=== PATIENT | male | born 1970 | race Native Hawaiian/Other Pacific Islander ===

== ENCOUNTER 2021-05-14 10:06 | Outpatient (REF) | payer OTHER, SELFPAY ==
--- NOTE | ~2021-05-14 | US_ITS ---
EXAMINATION: US RETROPERITONEAL COMPLETE (RENAL) CLINICAL INFORMATION: Flank pain. Rule out hydronephrosis. COMPARISON: None TECHNIQUE: Real-time imaging of the kidneys and bladder. FINDINGS: RIGHT KIDNEY: 10.7 x 5.0 x 4.9 cm (SAG x AP x TRV). The kidney is normal in size, contour, and echogenicity. Renal cortical thickness is normal. No calculi or focal parenchymal lesions. No hydronephrosis. LEFT KIDNEY: 11.0 x 5.1 x 5.0 cm (SAG x AP x TRV). The kidney is normal in size, contour, and echogenicity. Renal cortical thickness is normal. No calculi or focal parenchymal lesions. No hydronephrosis. BLADDER: Well distended and normal. Bilateral ureteral jets are demonstrated. Prevoid bladder volume is 181.9 mL. Postvoid bladder volume is 155.2 mL. Prostate volume 24.9 mL. US/US retroperitoneal comp IMPRESSION: 1. There are bilateral nonobstructed kidneys. 2. There is moderate prostate volume. There is a large post void residual.
== END 2021-05-14 10:07 | disposition home or self-care (01) ==
LOC: HO.US 10:06
PROVIDERS: PCP Internal Medicine Geriatric Medicine; Visit Provider Internal Medicine
DX: R10.9 Unspecified abdominal pain (principal)
CPT/HCPCS: 76770

== ENCOUNTER 2021-06-18 08:19 | Emergency (ER) | payer OTHER, SELFPAY ==
[2021-06-18 09:01] VITALS: BP 115/65; PULSE 67; RESP 18; TEMP 36.1; O2SAT 99; BMI 30.4
--- NOTE | 2021-06-18 09:17 | ED_ITS ---
HPI - Eye Problem General Chief complaint: Eye Problems Stated complaint: eye issue Time Seen by Provider: 06/18/21 09:16 Source: patient Mode of arrival: ambulatory Limitations: language barrier History of Present Illness HPI Narrative: 51-year-old Belarusian-speaking male presents for concerns for right eye. States he was moving trash at work yesterday and something fell into his right eye. He had some mild right eye pain yesterday and a sensation of foreign body in his right eye yesterday, no pain today. No itching today. No visual changes, blurry vision, or double vision. No neck pain, vomiting, or headache. Patient does not were contacts or glasses. Today, no pain in right eye, but right eye is red. Related Data Previous Rx's Medication Instructions Recorded erythromycin 5 mg/gram (0.5 %) eye 0.5 inch OPHTHALMIC (EYE) Q6H 5 06/18/21 ointment Days #3.5 g Allergies Allergy/AdvReac Type Severity Reaction Status Date / Time No Known Allergies Allergy Unverified 11/24/19 17:13 Review of Systems Constitutional: Constitutional: Denies body ache(s), Denies chills, Denies fatigue, Denies fever(s), Denies headache(s), Denies malaise and Denies weakness Eyes: Eyes: Denies blind spots, Denies blurry vision, Denies change in vision, Denies diplopia, Denies floaters, Reports irritation, Denies itchy eyes, Denies loss of vision, Denies eye pain, Denies seeing flashes and Denies photophobia Comments: Redness right eye ENT: Denies vertigo, Denies dizziness, Denies otalgia, Denies headache(s), Denies mouth pain, Denies post nasal drip, Denies sinus pain, Denies sinus pressure, Denies sore throat and Denies throat swelling Cardiovascular: Cardiovascular: Denies chest pain, Denies syncope, Denies leg edema, Denies lightheadedness, Denies Loss of Consciousness, Denies palpitations and Denies dyspnea Respiratory: Respiratory: Denies chest congestion, Denies cough and Denies dyspnea Gastrointestinal: Gastrointestinal: Denies abdominal pain, Denies hematochezia, Denies constipation, Denies diarrhea and Denies vomiting Musculoskeletal: Musculoskeletal: Reports no additional musculoskeletal complaints Neurologic: Denies confusion, Denies vertigo, Denies dizziness, Denies syncope, Denies headache(s), Denies loss of vision and Denies weakness Psychiatric: Psychiatric: Denies anxiety, Denies confusion and Denies depression Endocrine: Endocrine: Denies fatigue and Denies palpitations Allergic/Immunologic: Allergic/Immunologic: Denies itchy eyes and Denies throat swelling PMFSH Past Medical History Medical History (Updated 06/18/21 @ 10:21 by JOSEPH Santiago) No known health problems Social History Social History Advance Directives: No Advance Directives Information Provided: Yes Physical Exam Vital Signs: Vital Signs: Last Vital Signs Temp 96.9 F 06/18/21 09:01 Pulse 67 06/18/21 09:01 Resp 18 06/18/21 09:01 BP 115/65 06/18/21 09:01 Pulse Ox 99 06/18/21 09:01 BMI result Body Mass Index 30.4 Const: General: No confusion Nutritional Appearance: well nourished Orientation/consciousness: No confusion Limitations: no limitations HEENT: Head: Yes normal to inspection, Yes normocephalic and Yes atraumatic Ears: hearing grossly normal bilaterally, external ears normal, TM's normal bilaterally and EAC's normal General nose exam: Normal external nose present Face and sinus: Yes normal facial exam and Yes sinuses nontender Mouth: Normal oral and palatal mucosa present Throat: Yes posterior oropharynx normal Eyes: Other: left eye 20/15, right eye 20/25, bilateral 20/25 Visual Vega: normal visual vega by confrontation Alignment and Position: alignment normal Periorbital: periorbital findings normal Eyelids: Yes eyelids normal Conjunctivae: conjunctival abnormal right conjunctival chemosis and subconjunctival hemorrhage Sclerae: sclerae normal Corneas: corneas normal and fluorescein used Pupils: Equal, round and reactive pupils present EOM: EOMs intact bilaterally Direct Ophthalmoscopy: normal light reflex, no photophobia and No photophobia Neck: Neck: Yes full ROM, Yes no lymphadenopathy and Yes supple Resp: Effort & Inspection: normal respiratory effort and able to speak in complete sentences Auscultation: clear to auscultation bilaterally, no crackles, no rales, no rhonchi and no wheezes Cardio: Rate: regular rate Rhythm: regular rhythm Heart sounds: S1 normal heart sound present and S2 normal heart sound present GI: Inspection: Yes normal to inspection Palpation (GI): Soft to palpation, nontender, no guarding and not rigid Percussion: Yes normal to percussion Auscultation: normal bowel sounds Skin: General skin exam: no rashes or lesions noted Neuro: General: No confusion Cranial nerves: Yes Equal, round and reactive pupils present Extrem: General: Yes normal to inspection and Yes full ROM Psych: Appearance: grossly normal Affect: normal affect Attitude: cooperative Thought process: Normal thought process present Course Course Course Narrative: 51-year-old male with red right eye. On exam, patient has conjunctival chemosis in his right medial eye with subconjunctival hemorrhage that is mild Fluorescein stain reveals no corneal abrasion. Patient's visual acuity is within normal limits, patient has no pain with EOMs, patient is PERRLA. Will treat with erythromycinn ointment, follow-up with underwriting director Discharge Plan Discharge Clinical Impression: Chemosis of conjunctiva Patient Disposition: Home, Self-Care Additional Instructions: Please call eye doctor at [phone] today. I would like you to have a appointment with him in the next 2 days. In addition, please fill the prescription for urethra mycin ointment I prescribed, and put it in your right eye 4 times a day for 5 days. If you have visual loss, visual changes, neck pain, headache, please return to the emergency room. Kapil lyman al oftalm?logo al [phone]. Me gustar?a que tuviera mallory chad con ?l en los pr?ximos 2 d?as. Adem?s, complete la receta de pomada de uretramicina que le recet? y col?quela en moser osvaldo derecho 4 veces al d?a christy 5 d?as. Si tiene p?rdida visual, cambios visuales, dolor de johanne, dolor de ghassan, regrese a la hamilton de emergencias. Prescriptions: New erythromycin 5 mg/gram (0.5 %) ointment 0.5 inch ophthalmic (eye) Q6H 5 Days Qty: 3.5 0RF Referrals: Manish Levy [Physician] - Interventions: ED Discharge Assessment Last Done: 06/18/21 10:26 Discharge Date/Time: 06/18/21 10:26
[2021-06-18] MEDS: Tetracaine HCl/PF 0.5% Oph Sol 4 ML DROPS 3 DROP EYE-RIGHT (09:25)
[2021-06-18] MEDS: Fluorescein Sodium STRIP 1 STRIP EYE-RIGHT (09:25)
== END 2021-06-18 10:26 | disposition home or self-care (01) ==
PROVIDERS: Emergency Provider Emergency Medicine; PCP Internal Medicine Geriatric Medicine
DX: H11.421 Conjunctival edema, right eye (principal); H57.11 Ocular pain, right eye
CPT/HCPCS: 99283

== ENCOUNTER 2023-06-09 14:33 | Emergency (ER) | payer MEDICAID, SELFPAY ==
--- NOTE | ~2023-06-09 | XR_ITS ---
EXAMINATION: XR CHEST CLINICAL INFORMATION: Cough. COMPARISON: Chest x-ray 07/22/2018 TECHNIQUE: 2 views of the chest were obtained. FINDINGS: The lungs are well-expanded with patchy small consolidation right middle lobe suggestive of infiltrate. Rest lungs are clear. Heart size and pulmonary vascularity is normal. No gross bony abnormality seen. XR/XR chest 2V IMPRESSION: Right middle lobe small consolidation.
[2023-06-09 14:57] VITALS: BP 125/72; PULSE 82; RESP 16; TEMP 37.2; O2SAT 100; BMI 27.3
--- NOTE | 2023-06-09 14:58 | ED_ITS ---
HPI - General Adult General Chief complaint: Upper Respiratory Symptoms Stated complaint: Fever Body Aches Diff Breathing Time Seen by Provider: 06/09/23 16:07 Source: patient, family and old records reviewed Mode of arrival: ambulatory Limitations: no limitations History of Present Illness HPI narrative: This is a 53-year-old male, with a history of asthma, presenting to the emergency department, accompanied by his daughter, complaints of chills, productive cough x8 days. Patient endorsing chest pain only which occurs with cough. He states that his son-in-law sick with similar symptoms. He endorses subjective fevers, chills, green-colored sputum with cough. Denies any abdominal pain, nausea, vomiting, or diarrhea. He denies any shortness of breath or wheezing. He has been taking Robitussin as well as using his inhaler at home which has provided him with some relief. No other complaints or concerns at this time. MD complaint: Cough Onset (ago): day(s) Relieving factors: none Exacerbating factors: none Associated symptoms: cough and fever/chills Treatments prior to arrival: none Related Data Previous Rx's Medication Instructions Recorded erythromycin 5 mg/gram (0.5 %) eye 0.5 inch ophthalmic (eye) Q6H 5 06/18/21 ointment days #3.5 grams acetaminophen 500 mg tablet 500 - 1,000 mg (1 - 2 x 500 mg) PO 06/09/23 (Tylenol Extra Strength) Q6H PRN fever or pain #30 tabs albuterol sulfate 2.5 mg/0.5 mL 2.5 mg (0.5 mL) inhalation Q20M 06/09/23 solution for nebulization #30 ea albuterol sulfate 90 mcg/actuation 2 inh inhalation Q6H PRN shortness 06/09/23 aerosol inhaler of breath or wheezing #6.7 grams azithromycin 250 mg tablet 250 mg PO DAILY 4 days #4 tabs 06/09/23 ibuprofen 600 mg tablet 600 mg PO Q6H PRN fever or pain 06/09/23 #30 tabs Allergies Allergy/AdvReac Type Severity Reaction Status Date / Time No Known Allergies Allergy Verified 06/09/23 14:57 Review of Systems Review of Systems: Yes all other systems are reviewed and are negative Constitutional: Constitutional: Reports as per [facility] Past Medical History Medical History (Updated 06/09/23 @ 17:30 by JOSEPH Coles) No known health problems Social History Social History Advance Directives: No Advance Directives Information Provided: No Physical Exam ED Vital Signs: Vital Signs - 24 hr 06/09/23 14:57 Temperature 98.9 F Pulse Rate 82 Respiratory Rate 16 Blood Pressure 125/72 Pulse Oximetry 100 Oxygen Delivery Method Room Air BMI result Body Mass Index 27.3 Const General: cooperative, comfortable and no acute distress Orientation/consciousness: patient oriented x3 Limitations: no limitations HENMT Head: Yes normal to inspection, Yes normocephalic and Yes atraumatic Ears: hearing grossly normal bilaterally General nose exam: Normal external nose present Face and sinus: Yes normal facial exam Mouth: Normal oral and palatal mucosa present, oropharynx normal and moist mucous membranes Throat: Yes posterior oropharynx normal Eyes General: appearance normal, both eyes and all related structures Eyelids: Yes eyelids normal Conjunctivae: conjunctivae normal Sclerae: sclerae normal Pupils: Equal, round and reactive pupils present EOM: EOMs intact bilaterally Neck Neck: Yes normal visual inspection, Yes full ROM and Yes no lymphadenopathy Lymphatic: no lymphadenopathy noted Chest Chest palpation & inspection: normal inspection of the chest Resp Effort & Inspection: normal respiratory effort and able to speak in complete sentences Auscultation: clear to auscultation bilaterally, no crackles, no rales, no rhonchi and no wheezes Cardio Rate: regular rate Rhythm: regular rhythm Heart sounds: S1 normal heart sound present and S2 normal heart sound present GI Inspection: Yes normal to inspection Skin General skin exam: no rashes or lesions noted Trauma: no lacerations or abrasions Wounds: no wounds Neuro General: patient oriented x3 and moves all extremities Cranial nerves: Yes Equal, round and reactive pupils present Extrem General: Yes normal to inspection Right upper extremity: normal to inspection Left upper extremity: normal to inspection Right lower extremity: normal to inspection Left lower extremity: normal to inspection Course Course Course Narrative: This is a Rapid Medical Examination (RME) in triage, full HPI, ROS, assessment and plan per primary provider in the Main ED. 53 yo Azeri speaking male with history of asthma presents to the ER for evaluation of productive cough for the last 8 days, green phlegm. Fevers and body aches, chest pain w/ coughing. No known sick contacts. SpO2 100% in triage, speaking in complete sentences. Plan: viral swab, CXR Medical Decision Making Medical Decision Making [facility] Narrative: This is a 53-year-old male, with a history of asthma, presenting to the emergency department with complaints of subjective fevers, chills, productive cough with green-colored sputum for the last 8 days. Patient endorsing chest pain which occurs with coughing. Son-in-law sick with similar symptoms. On arrival, vital signs within normal limits, he has in no acute respiratory distress. Lungs are clear to auscultation bilaterally. Viral swabs as well as chest x-ray was obtained, chest x-ray concerning for right middle lobe pneumonia. Given that he has not hypoxic, afebrile, will treat with a course of antibiotics outpatient. Patient given strict return precautions. He understands and agrees with plan. Differential Diagnosis Differential Diagnoses: The differential diagnosis associated with the presentation includes URI, bronchitis, pneumonia, pneumothorax-unlikely, COVID Admission/Observation Consideration of admission/observation: Escalation of care including admission/observation considered Lab Data [facility] Lab Attestation statement: I reviewed the patient's lab results. Negative viral swabs Labs: Lab Results 06/09/23 Range/Units 15:04 Influenza Type A (PCR) NEGATIVE (Negative) Influenza Type B (PCR) NEGATIVE (Negative) RSV RNA Qual (PCR) NEGATIVE (Negative) SARS-CoV-2 RNA (RT-PCR) NEGATIVE (Negative) Independent Interpretation I performed an independent interpretation of an: Plain X-Ray Interpretation: I reviewed the chest x-ray and agree with the radiology report Radiology Impression Discussion of test interpretation with radiology: I have reviewed the radiologist's reading. Radiologist Impression: EXAMINATION: XR CHEST CLINICAL INFORMATION: Cough. COMPARISON: Chest x-ray 07/22/2018 TECHNIQUE: 2 views of the chest were obtained. FINDINGS: The lungs are well-expanded with patchy small consolidation right middle lobe suggestive of infiltrate. Rest lungs are clear. Heart size and pulmonary vascularity is normal. No gross bony abnormality seen. XR/XR chest 2V IMPRESSION: Right middle lobe small consolidation. Dictated By: Lars Smith MD Independent Historian Clinical information obtained from an independent historian. History obtained from or confirmed by: Other (Daughter) Discharge Plan Discharge Clinical Impression: Pneumonia Qualifiers: Pneumonia type: due to unspecified organism Laterality: right Lung location: middle lobe of lung Qualified Code(s): J18.9 - Pneumonia, unspecified organism Patient Disposition: Home, Self-Care Instructions: Pneumonia (ED) Additional Instructions: Your chest x-ray is concerning for pneumonia. This requires antibiotics. Please finish the entire course even if your feeling better. Drink plenty of fluids get plenty of rest. Alternate between ibuprofen and Tylenol as needed for pain and symptoms. If any new or worsening symptoms occur including but not limited to worsening chest pain, shortness of breath, abdominal pain, nausea, vomiting or diarrhea, please return for re-evaluation. Prescriptions: New ibuprofen 600 mg tablet 600 mg PO Q6H PRN (Reason: fever or pain) Qty: 30 0RF acetaminophen [Tylenol Extra Strength] 500 mg tablet 500 - 1,000 mg PO Q6H PRN (Reason: fever or pain) Qty: 30 0RF Rx Instructions: Do not exceed more than 6 tablets in a 24 hour period azithromycin 250 mg tablet 250 mg PO DAILY 4 Days Qty: 4 0RF Rx Instructions: start on day 2 of therapy albuterol sulfate 90 mcg/actuation HFA aerosol inhaler 2 inh inhalation Q6H PRN (Reason: shortness of breath or wheezing) Qty: 6.7 0RF albuterol sulfate 2.5 mg/0.5 mL solution for nebulization 2.5 mg inhalation Q20M Qty: 30 0RF Rx Instructions: for up to 3 doses No Action erythromycin 5 mg/gram (0.5 %) ointment 0.5 inch ophthalmic (eye) Q6H 5 Days Qty: 3.5 0RF
[2023-06-09 16:04] LABS: Influenza A PCR NEGATIVE (Negative); Influenza B PCR NEGATIVE (Negative); Resp Syncy Virus RNA Qual PCR NEGATIVE (Negative); SARS COV2 PCR INHOUSE NEGATIVE (Negative)
[2023-06-09] MEDS: Acetaminophen 325 MG TABLET 975 MG PO (17:45)
[2023-06-09] MEDS: Azithromycin 500 MG TABLET PO (17:45)
[2023-06-09 17:49] VITALS: BP 107/65; PULSE 100; RESP 18; TEMP 39.1; O2SAT 94
[2023-06-09 18:50] VITALS: BP 101/62; PULSE 86; RESP 16; TEMP 37.4; O2SAT 94
== END 2023-06-09 18:50 | disposition home or self-care (01) ==
PROVIDERS: Physician Assistant; Emergency Provider Emergency Medicine; PCP Internal Medicine Geriatric Medicine
DX: J18.9 Pneumonia, unspecified organism (principal); J45.909 Unspecified asthma, uncomplicated
CPT/HCPCS: 0241U; 71046; 99283

== ENCOUNTER 2023-06-12 10:06 | Outpatient (REF) | payer MEDICAID, SELFPAY ==
--- NOTE | ~2023-06-12 | XR_ITS ---
EXAMINATION: XR chest 2V CLINICAL INFORMATION: Reason for Exam s/p pna - needs xray 1 months after tx (around 07/13) COMPARISON: No prior chest x-ray available in our system for comparison at the time of this dictation. TECHNIQUE: XR chest 2V, 2 Views Lungs and Rosy: Both lungs are clear. Pleura: Normal. Costophrenic angles are sharp. No pneumothorax. Heart: The heart is normal in size. Mediastinum: The mediastinum is within normal limits.. Bones: Skeletal structures included are normal for patient's age. XR/XR chest 2V IMPRESSION: No radiographic evidence of acute cardiopulmonary disease.
== END 2023-06-12 10:07 | disposition home or self-care (01) ==
LOC: HO.HHCX 10:06
PROVIDERS: Visit Provider Nurse Practitioner Family
DX: R91.8 Other nonspecific abnormal finding of lung field (principal)
CPT/HCPCS: 71046

== ENCOUNTER 2023-12-17 09:32 | Outpatient (REF) | payer MEDICAID, SELFPAY ==
[2023-12-17 11:13] LABS: MANUAL DIFF FLAG NO
[2023-12-17 11:40] LABS: Basophils Percent Auto 0.6 % (0-2); Eosinophils Absolute Auto 0.3 X10*3/uL (0.0-0.4); Eosinophils Percent Auto 6.3 % (0-4); Hematocrit 44.7 % (42.0-52.0); Imm Gran Abs Auto 0.01 X10*3/uL (0.00-0.03); Imm Gran Pct Auto 0.2 % (0.0-0.4); Lymphocytes Absolute Auto 2.5 X10*3/uL (1.2-4.9); Mean Corpuscular HGB Conc 33.6 g/dl (31.0-36.0); Mean Corpuscular Hemoglobin 27.9 pg (27.0-33.0); Mean Corpuscular Volume 83.2 fL (80.0-98.0); Mean Platelet Volume 10.3 fL (9.4-12.4); Monocytes Absolute Auto 0.3 X10*3/uL (0.1-1.2); Monocytes Percent Auto 6.5 % (2-11); Neutrophils Absolute Auto 1.8 x10*3/uL (2.0-8.3); Neutrophils Percent Auto 36.4 % (45-73); Platelet Count 163 X10*3/uL (160-400); Red Blood Count 5.37 X10*6/uL (4.60-5.80); Red Cell Distribution Width 13.2 % (11.0-16.0); White Blood Count 5.1 X10*3/uL (4.8-10.8)
[2023-12-17 12:01] LABS: Estimated Average Glucose 111 mg/dL; Hemoglobin A1C 133.3113 umol/L; Hemoglobin A1c % 5.5 % (<6.0); Total Hemoglobin (HGBA1C) 3648.5765 umol/L
[2023-12-17 12:15] LABS: Alanine Aminotransferase 29 U/L (0-40); Albumin Level 4.1 g/dL (3.5-5.0); Alkaline Phosphatase 63 U/L (39-117); Anion Gap 9 (12-20); Aspartate Amino Transferase 23 U/L (5-37); Blood Urea Nitrogen 17 mg/dL (9-16); Calcium 9.1 mg/dL (8.4-10.2); Carbon Dioxide 27 mmol/L (22-29); Chloride 107 mmol/L (96-108); Cholesterol 205 mg/dL (<200); Estimated Glomerular Filt Rate > 60; Glucose Random 104 mg/dL (60-115); HDL Cholesterol 44 mg/dL (>40); LDL Cholesterol Calculated 143 mg/dL (<100); Potassium 4.4 mmol/L (3.3-5.1); Sodium 139 mmol/L (135-145); Total Protein 7.1 g/dL (6.5-8.0); Triglycerides 90 mg/dL (<150)
[2023-12-17 12:18] LABS: Prostate Specific Antigen 5.44 ng/mL (<0.05-4.0)
== END 2023-12-17 09:33 | disposition home or self-care (01) ==
LOC: HO.HHCL 09:32
PROVIDERS: Visit Provider Internal Medicine Geriatric Medicine
DX: Z00.00 Encounter for general adult medical examination without abnormal findings (principal); Z13.1 Encounter for screening for diabetes mellitus; Z12.5 Encounter for screening for malignant neoplasm of prostate; Z13.220 Encounter for screening for lipoid disorders
CPT/HCPCS: 36415; 80053; 80061; 83036; 84153; 85025